=== PATIENT | male | born 1965 | race Caucasian/White ===

== ENCOUNTER 2016-09-13 21:03 | Emergency (ER) | payer OTHER ==
--- NOTE | ~2016-09-13 | EKG ---
PATIENT: MONSE HAILE UNIT #: [id number] Ventricular Rate: 66 BPM Atrial Rate: 66 BPM P-R Interval: 156 ms QRS Duration: 84 ms Q-T Interval: 398 ms QTC Calculation(Bezet): 417 ms P Revloc: 30 degrees Calculated R Revloc: 0 degrees Calculated T Revloc: 11 degrees Diagnosis Line: Normal sinus rhythm Diagnosis Line: Normal ECG Diagnosis Line: When compared with ECG of 30-SEP-2015 21:17, Diagnosis Line: Vent. rate has decreased BY 32 BPM Diagnosis Line: Confirmed by KEAGAN HELMS MD ([id number]) on 09/15/2016 Diagnosis Line: 7:45:21 PM INTERPRETING MD: [employer]
--- NOTE | ~2016-09-13 | CR72 ---
[facility] A Service of [facility] & [facility] RADIOLOGY TEXT RESULTS PATIENT: MONSE HAILE LOCATION: [facility] : 69 UNIT #: [id number] AGE: [address]: George Blandon MD SEX: M ORDER DR: [id number] [facility] [address] [place], [place] [address] [id number] E MR#: [id number] Acc #: [id number] NAME: MONSE HAILE : 1965 SEX: M STUDY DATE/TIME: 09/13/2016 20:42 UNIT: [facility] ROOM: STUDY DESCRIPTION: CR Chest Single View Portable Attending Physician: George Blandon Ordering Physician: Ed Doctor [id number] [facility] Primary Care Physician: Carrington Dutta M.D. MEDICAL IMAGING REPORT This report is preliminary unless electronic signature is present EXAM Portable chest HISTORY Cough, congestion x1 week. COMPARISON 09/29/1968. FINDINGS A single AP portable view of the chest shows both lungs to be clear. The heart is normal in size. The mediastinal contour is normal. No significant bone abnormalities are seen. IMPRESSION Normal portable chest. Dictated by... Mca Sanchez M.D. THIS IS AN ELECTRONICALLY VERIFIED REPORT Mac Sanchez M.D. at 09/14/2016 3:33 PM John TD: 09/14/2016 08:03 JOB #: [id number] MEDICAL IMAGING REPORT Page 1 of 1 COPY
[~2016-09-13 21:03] MED LIST: ANDRODERM5 MG TOP; ANDROGEL150 GM TOP; ATIVAN2 M1 PO; ATIVAN2 MG PO; AXIRON90 ML TOP; BUPROPION XL300 MG PO; FLEXERIL10 MG PO; LEVAQUIN PO; LIPITOR PO; LIPITOR40 MG PO; NAPROXEN PO; NASONEX17 GM; NORVASC PO; NORVASC10 MG PO; PERCOCET5/325 PO; PHENERGAN25 M1 PO; SEROQUEL PO; TOPAMAX25 MG PO; TRAZODONE HCL300 MG PO; VITAMIN D PO; WELLBUTRIN PO; WELLBUTRIN XL PO; ZANTAC150 MG PO; ZYLOPRIM PO
[2016-09-13 22:53] LABS: BASOPHIL# 0.1 X10e3 (0-0.3); BASOPHIL% 0.7 % (0-2.5); EOSINOPHIL# 0.3 X10e3 (0-0.7); EOSINOPHIL% 2.5 % (0.0-7.0); HEMATOCRIT 48.2 % (38.0-50.0); HEMOGLOBIN 16.4 gm/dL (13.0-16.0); LYMPHOCYTE# 1.2 X10e3 (1.0-3.5); LYMPHOCYTE% 10.8 % (17.0-45.0); MEAN CORPUSCULAR HEMOGLOBIN 33.3 PG (28-34); MEAN PLATELET VOLUME 7.8 FL (6.5-11.5); MONOCYTE% 9.5 % (3.0-12.0); NEUTROPHIL# 8.3 X10e3 (1.5-7.1); NEUTROPHIL% 76.5 % (40-75); PLATELET COUNT 199 X10e3 (140-420); RED BLOOD COUNT 4.92 X10e (3.90-5.60); RED CELL DISTRIBUTION WIDTH 13.8 % (11.0-15.5); WHITE BLOOD COUNT 10.9 X10e3 (4.0-10.5)
[2016-09-13 22:56] LABS: DIFF IND NO
[2016-09-13 23:20] LABS: CALCIUM SERUM 9.2 mg/dL (8.4-10.2); POTASSIUM 3.8 mmol/L (3.5-5.1)
[2016-09-14 01:09] LABS: POC - CKMB <1.0 ng/mL (0.0-7.9); POC - TROPONIN <0.05 ng/mL (<=0.05)
[2016-09-14 01:10] LABS: POC - CKMB <1.0 ng/mL (0.0-7.9); POC - TROPONIN <0.05 ng/mL (<=0.05)
== END 2016-09-14 01:36 | disposition home or self-care (01) ==
LOC: CED 21:03
PROVIDERS: Emergency Medicine
DX: J20.9 Acute bronchitis, unspecified (principal); I10 Essential (primary) hypertension; Z90.49 Acquired absence of other specified parts of digestive tract; Z98.890 Other specified postprocedural states
CPT/HCPCS: 36415; 71010; 80048; 82553; 84484; 85025; 93005; 96374; 99284; J2405